=== PATIENT | male | born 1995 | race Caucasian/White ===

== ENCOUNTER 2020-08-08 13:10 | Outpatient (CLI) | payer OTHER ==
--- NOTE | 2020-08-08 14:08 | RAD ---
LEFT ANKLE 3 VIEWS: Date: 08/08/2020 HISTORY: Injury, left ankle pain. FINDINGS/IMPRESSION: Soft tissue swelling is present. There is a tiny bony density inferomedial to the lateral malleolus s uspicious for an avulsion fracture. POS: AH
--- NOTE | 2020-08-08 14:08 | RAD ---
LEFT FOOT 3 VIEWS: Date: 08/08/2020 HISTORY: Injury, left foot pain. FINDINGS/IMPRESSION: No acute fracture or dislocation is identified. POS: AH
== END 2020-08-08 13:11 | disposition home or self-care (01) ==
LOC: SCSRAD 13:10
DX: S99.912A Unspecified injury of left ankle, initial encounter (principal); S99.922A Unspecified injury of left foot, initial encounter; M79.89 Other specified soft tissue disorders; R93.7 Abnormal findings on diagnostic imaging of other parts of musculoskeletal system